=== PATIENT | male | born 1940 | race Caucasian/White ===

== ENCOUNTER → 2021-11-22 11:30 | Outpatient (CLI) | payer MEDICARE, OTHER, SELFPAY ==
--- NOTE | 2021-11-22 11:51 | DI.ECHO.S_ITS ---
Interpretation Summary The ejection fraction is estimated to be 55-60%. There is mild mitral regurgitation. There is mild tricuspid regurgitation. The right ventricular systolic pressure is estimated to be at least 23 mmHg based on an estimated right atrial pressure of 3 mm Hg. Procedure: A two-dimensional transthoracic echocardiogram with color flow and Doppler was performed. The study quality was technically adequate. There is no prior echocardiogram noted for this patient. The patient was in sinus rhythm with heart rates between 68-75 bpm during the exam. Left Ventricle: The left ventricle is normal in size and wall thickness. The ejection fraction is estimated to be 55-60%. Right Ventricle: The right ventricle is normal in size and function. Atria: The left atrial size is normal. Right atrial size is normal. There is no Doppler evidence for an interatrial shunt. Mitral Valve: The mitral valve is normal in structure and function. There is mild mitral regurgitation. Aortic Valve: The aortic valve is trileaflet. The aortic valve opens well. There is no aortic valve stenosis. No aortic regurgitation is present. Tricuspid Valve: The tricuspid valve is normal in structure and function. There is mild tricuspid regurgitation. The right ventricular systolic pressure is estimated to be at least 23 mmHg based on an estimated right atrial pressure of 3 mm Hg. Pulmonic Valve: The pulmonic valve leaflets are thin and pliable; valve motion is normal. There is trace pulmonic regurgitation. Great Vessels: The aortic root is normal size. The ascending aorta is mildly enlarged. The IVC is of normal diameter and collapses greater than 50% with a sniff. This suggests a low right atrial pressure of 3 mm Hg. Pericardium/ Pleura There is no pericardial effusion. There is no pleural effusion. MMode/2D Measurements & Calculations LVIDd: 4.7 cm LVOT diam: 2.3 cm LVIDs: 3.6 cm Ao root diam: 3.4 cm FS: 23.5 % asc Aorta Diam: 4.0 cm IVSd: 0.89 cm LVPWd: 0.93 cm LV serrato. diameter/BSA (cm/m^2): 2.2 LV sys. diameter/BSA (cm/m^2): 1.7 LA A2 area: 23.0 cm2 RA long axis: 5.0 cm LA A4 area: 15.5 cm2 RA area: 15.1 cm2 LA length (vol): 4.3 cm RA vol: 39.2 ml LA vol: 69.4 ml RA : 18.4 ml/m2 LA vol index: 32.6 ml/m2 IVC diam: 1.1 cm RVD1 (basal): 3.2 cm RVD2 (mid): 2.9 cm TAPSE: 1.9 cm Doppler Measurements & Calculations Ao V2 max: 104.0 cm/sec LVOT Max Randall: 91.5 cm/sec Ao V2 mean: 78.1 cm/sec LV V1 max P.3 mmHg Ao max P.3 mmHg LV V1 VTI: 18.2 cm Ao mean P.6 mmHg CAROLYN(I,D): 3.5 cm2 Ao V2 VTI: 21.4 cm CAROLYN(V,D): 3.6 cm2 sev ratio: 0.85 CAROLYN indexed to BSA (cm^2/m^2): 1.6 MV E max randall: 53.7 cm/sec TR max randall: 225.2 cm/sec MV A max randall: 79.7 cm/sec TR max P.3 mmHg MV E/A: 0.67 PA V2 max: 103.3 cm/sec Med Peak E' Randall: 4.9 cm/sec PA V2 mean: 67.9 cm/sec E/E' med: 11.0 PA mean P.1 mmHg Lat Peak E' Randall: 6.0 cm/sec PA pr(Accel): 32.8 mmHg E/E' lat: 8.9 E/e' average: 9.9 MV dec time: 0.20 sec SV(LVOT): 74.4 ml Reading Physician:03:50 PM
== END ==
PROVIDERS: Family Provider Family Medicine; PCP Family Medicine; Referring Provider Family Medicine; Visit Provider Family Medicine
DX: I77.89 Other specified disorders of arteries and arterioles (principal); I08.1 Rheumatic disorders of both mitral and tricuspid valves; R01.1 Cardiac murmur, unspecified
CPT/HCPCS: 93306

== ENCOUNTER → 2022-01-11 15:25 | Outpatient (CLI) | payer MEDICARE, OTHER, SELFPAY | PROVIDERS: Family Provider Family Medicine; PCP Family Medicine; Referring Provider Urology; Visit Provider Urology | DX: Z53.20 Procedure and treatment not carried out because of patient's decision for unspecified reasons (principal); N42.9 Disorder of prostate, unspecified; R97.20 Elevated prostate specific antigen [PSA] ==

== ENCOUNTER → 2024-12-13 13:31 | Outpatient (CLI) | payer MEDICARE, OTHER, SELFPAY ==
--- NOTE | 2024-12-13 13:32 | DI.ECHO.S_ITS ---
:Name: EAGLE BAKER Study Date: 12/13/2024 Height: 71 in : :[facility] ReadingLocation: Weight: 195 lb : : Gender: Male BSA: 2.1 m2 : :: 1940 Age: 84 yrs BP: 156/82 mmHg: :Reason For Study: PVC : :Ordering Physician: NILO VELIZ Performed By: Viral Bill : :Referring: NILO VELIZ : + + Interpretation Summary Preserved biventricular size and systolic function. LVEF is 55 to 60%. Normal atrial sizes. No significant valvular dysfunction is noted. Other findings as below. Procedure: A two-dimensional transthoracic echocardiogram with color flow and Doppler was performed. The study quality was technically adequate. Comparison is made with the echocardiogram of 11/22/2021. The heart rate ranged between 60-75 bpm during the study. The patient had frequent PVCs during the exam. Left Ventricle: The left ventricle is normal in size and wall thickness. Overall left ventricular systolic function is preserved. The ejection fraction is estimated to be 55-60%. Beat to beat variability due to arrhythmia. There are no focal wall motion abnormalities. Grade I diastolic dysfunction with normal left atrial pressure. Right Ventricle: The right ventricle is normal in size and function. Atria: The left atrial size is normal. Right atrial size is normal. There is no Doppler evidence for an interatrial shunt. Mitral Valve: There is mild mitral annular calcification. The mitral valve leaflets appear to open well. There is no mitral valve stenosis. There is trace mitral regurgitation. Aortic Valve: The aortic valve is trileaflet. The aortic valve opens well. There is no aortic valve stenosis. No aortic regurgitation is present. Tricuspid Valve: The tricuspid valve leaflets are thin and pliable. There is trace tricuspid regurgitation. Pulmonary artery pressures cannot be estimated because of the lack of a measurable TR jet velocity but the IVC suggests a CVP of around 8 mmHg. Pulmonic Valve: The pulmonic valve is not well seen, but is grossly normal. There is trace pulmonic regurgitation. Great Vessels: The aortic root is normal size. Atypical echodensity in the aorta most consistent with reverberation artifact. The ascending aorta is normal in size. The aortic arch could not be visualized. The pulmonary is not well visualized. The IVC is dilated (diameter is greater than 2.1 cm) yet it collapses greater than 50% with a sniff. This suggests a right atrial pressure of 8 mm Hg. Pericardium/ Pleura There is no pericardial effusion. MMode/2D Measurements & Calculations LVIDd: 5.9 cm LVOT diam: 2.2 cm LVIDs: 3.8 cm Ao root diam: 3.7 cm FS: 35.7 % asc Aorta Diam: 3.7 cm IVSd: 1.0 cm LVPWd: 1.0 cm LV serrato. diameter/BSA (cm/m^2): 2.8 LV sys. diameter/BSA (cm/m^2): 1.8 LA A2 area: 16.5 cm2 RA long axis: 5.0 cm LA A4 area: 18.0 cm2 RA area: 13.3 cm2 LA length (vol): 5.3 cm RA vol: 30.0 ml LA vol: 47.3 ml RA : 14.4 ml/m2 LA vol index: 22.7 ml/m2 IVC diam: 2.4 cm RVD1 (basal): 3.5 cm RVD2 (mid): 2.7 cm TAPSE: 2.2 cm Doppler Measurements & Calculations Ao V2 max: 143.4 cm/sec LVOT Max Randall: 116.0 cm/sec Ao V2 mean: 95.7 cm/sec LV V1 max P.4 mmHg Ao max P.2 mmHg LV V1 VTI: 20.6 cm Ao mean P.2 mmHg CAROLYN(I,D): 3.4 cm2 Ao V2 VTI: 23.8 cm CAROLYN(V,D): 3.1 cm2 sev ratio: 0.87 CAROLYN indexed to BSA (cm^2/m^2): 1.6 MV E max randall: 62.4 cm/sec PA V2 max: 107.8 cm/sec MV A max randall: 87.4 cm/sec PA V2 mean: 69.6 cm/sec MV E/A: 0.71 PA mean P.3 mmHg MV dec time: 0.18 sec PA pr(Accel): 43.0 mmHg SV(LVOT): 79.9 ml
== END ==
LOC: ECHO 13:32
PROVIDERS: PCP Family Medicine; Referring Provider Internal Medicine Cardiovascular Disease; Visit Provider Internal Medicine Cardiovascular Disease
DX: I49.3 Ventricular premature depolarization (principal); I34.81 Nonrheumatic mitral (valve) annulus calcification
CPT/HCPCS: 93306